=== PATIENT | male | born 1995 | race Caucasian/White ===

== ENCOUNTER 2016-07-07 11:04 | Emergency (ER) | payer MEDICAID ==
[~2016-07-07] VITALS: Ht 185.4 cm; Wt 80.5 kg
[2016-07-07] MEDS ORDERED: SODIUM CHLORIDE FLUSH 10ML SYR IVF ONE (12:00)
[2016-07-07] MEDS ORDERED: KETOROLAC 30 MG/1 ML IVPush ONE (12:00)
[2016-07-07] MEDS ORDERED: ACETAMINOPHEN 500 MG TABLET PO ONE (12:00)
[2016-07-07] MEDS ORDERED: SODIUM CHLORIDE 0.9% 1,000ML IVBOLUS ONE (12:00)
[2016-07-07] MEDS ORDERED: KETOROLAC 30 MG/1 ML ONE (12:12)
[2016-07-07] MEDS ORDERED: ACETAMINOPHEN 500 MG TABLET ONE (12:12)
[2016-07-07 13:03] VITALS: BP 116/72
== END 2016-07-07 13:05 | disposition home or self-care (01) ==
LOC: ED 12:12
DX: R50.9 Fever, unspecified (principal); B34.9 Viral infection, unspecified
CPT/HCPCS: 71020; 96361; 96374; 99284; J1885; J7030